=== PATIENT | male | born 1935 | race Two or more races ===

== ENCOUNTER 2017-10-28 19:42 | Inpatient (IN) | payer MEDICARE, MEDICAID ==
[~2017-10-28] VITALS: Ht 142.2 cm; Wt 60.8 kg
--- NOTE | 2017-10-28 20:09 | NUR ---
MEDICALLY CLEARED BY DR DENNEY. CALLED MUNIRA ALSTON FROM [employer]. ETA 1HR
[2017-10-28] MEDS ORDERED: ASPI-605 PO (22:10)
[2017-10-28] MEDS ORDERED: INSU100V7 SQ (22:10)
[2017-10-28] MEDS ORDERED: SITA50TA PO (22:10)
[2017-10-28] MEDS ORDERED: CLON0.1T PO (22:10)
[2017-10-28] MEDS ORDERED: TAMS0.4C34 PO (22:10)
[2017-10-28] MEDS ORDERED: AMLO5TAB2 PO (22:10)
[2017-10-28] MEDS ORDERED: PRAV10TA40 PO (22:10)
--- NOTE | 2017-10-28 22:17 | NUR ---
REPORT GIVEN TO NY VELAZQUEZ
--- NOTE | 2017-10-28 22:35 | NUR ---
Pt. admitted to [facility], under care of Dr. HUYNH Belongs List completed
[2017-10-28 22:40] VITALS: BP 159/57
[2017-10-28] MEDS ORDERED: MAG HYDROX/AL HYDROX/SIMETH 30 ML LIQUID UDC PO PRN (23:00)
[2017-10-28] MEDS ORDERED: MAGNESIUM HYDROXIDE 30 ML LIQUID UDC PO PRN (23:00)
[2017-10-28] MEDS ORDERED: LORAZEPAM 1 MG TABLET PO PRN (23:00)
[2017-10-28] MEDS ORDERED: TEMAZEPAM 7.5 MG CAPSULE PO PRN (23:00)
--- NOTE | 2017-10-28 23:30 | NUR ---
received to care, at 2234, on a 72 hour hold, for gravely disabled, from the emergency room, a transfer from [facility]. according to the chart, he has had recent fixed delusions of "bugs" all over his body, preventing him from sleeping, eating, or performing self care. upon arrival, he was pleasant, but anxious. interviewed via load out person. denies SI, or desire to harm self. agreed to contract for safety while in the hospital. pt was cooperative with admission questions, but unable to focus, due to being fixated on the bugs. he was given a snack and assisted to bed at 2300. as of 2330, he appears to be asleep. no distress noted. will continue to monitor closely.
--- NOTE | 2017-10-29 06:00 | NUR ---
slept 5.75 hours, total. assited with AM care, and shower. currently lying in bed. no distress noted.
[2017-10-29 07:30] VITALS: BP 137/52
[2017-10-29] MEDS ORDERED: DEXTROSE 50% 50 ML DISP.SYRIN IV PRN (11:30)
[2017-10-29] MEDS: BLOOD SUGAR DIAGNOSTIC 1 EACH STRIP VI SCH ×3 (11:52→21:47)
--- NOTE | 2017-10-29 12:56 | NUR ---
Gps/Computer Systems Consultant- Ambulates around with front wheel walker. Speaks Persian, making needs known. Redirectable , fed self after set up, denies discomfort, encouraged participation in his group therapy.
[2017-10-29 14:36] LABS: *BILIRUBIN,URIN NEGATIVE (NEGATIVE); *BLOOD, URINE 1+ (NEGATIVE); *COLOR,URINE YELLOW (YELLOW); *KETONES,URINE NEGATIVE (NEGATIVE); *PROTEIN,URINE 2+ (NEGATIVE); *UROBILINOGEN,URINE 0.2 E.U./dl (NORMAL); NITRITE, URINE NEGATIVE (NEGATIVE); PH,URINE 6.5 (5.0-8.0); UGLUCOSE NEGATIVE (NEGATIVE)
[2017-10-29 14:47] LABS: *CLARITY,URINE HAZY (CLEAR); LEUKOCYTE ESTERASE ,URINE 2+ (NEGATIVE)
[2017-10-29 14:48] LABS: SQUAMOUS EPITHELIAL CELL,UR FEW /HPF (NONE SEEN); WBC,URINE 80-100 /HPF (0-3)
[2017-10-29 15:40] VITALS: BP 141/57
[2017-10-29] MEDS: INSULIN REGULAR, HUMAN 300 UNIT/3 ML VIAL SQ PRN (16:52)
[2017-10-29] MEDS: SULFAMETH/TRIMETH 800/160 MG TABLET PO SCH ×2 (16:57→20:51)
[2017-10-29] MEDS: risperiDONE 0.5 MG TABLET PO SCH ×2 (18:45→20:51)
[2017-10-29 20:03] VITALS: BP 143/62
[2017-10-29] MEDS: ATORVASTATIN 10 MG TABLET PO SCH (20:50)
[2017-10-29] MEDS: TAMSULOSIN HCL 0.4 MG CAP.SR.24H PO SCH (20:51)
[2017-10-29] MEDS: CLONIDINE HCL 0.1 MG TABLET PO SCH (20:58)
--- NOTE | 2017-10-29 22:00 | NUR ---
received to care, sitting in his room, pleasant upon approach. compliant with medications, and staff direction. interviewed via director of retention. no delusional thoughts expressed. as of 2199, he appears to be asleep. no distress noted. will continue to monitor closely.
[2017-10-30] MEDS: BLOOD SUGAR DIAGNOSTIC 1 EACH STRIP VI SCH ×4 (06:14→21:16)
[2017-10-30 07:15] LABS: BASOPHILS # (AUTO) 0.1 K/uL (0.0-8.0); BASOPHILS % (AUTO) 1.2 % (0.0-2.0); EOSINOPHILS # (AUTO) 0.2 K/uL (0.0-0.7); HEMATOCRIT 30.8 % (36.7-47.1); HEMOGLOBIN 10.6 g/dL (12.5-16.3); LYMPHOCYTES # (AUTO) 1.1 K/uL (20.0-40.0); LYMPHOCYTES % (AUTO) 16.9 % (20.5-51.5); MEAN CORPUSCULAR HEMOGLOBIN 29.9 uug (23.8-33.4); MEAN CORPUSCULAR HGB CONC 34 g/dL (32.5-36.3); MEAN CORPUSCULAR VOLUME 87.1 fL (73.0-96.2); NEUTROPHILS # (AUTO) 4.1 K/uL (1.8-8.9); NEUTROPHILS % (AUTO) 63.9 % (38.5-71.5); PLATELET COUNT (AUTO) 227 K/uL (152-348); RED BLOOD CELL COUNT(AUTO) 3.53 MIL/uL (4.06-5.63); WHITE BLOOD COUNT (AUTO) 6.4 K/uL (3.6-10.2)
[2017-10-30 07:23] LABS: NEUTROPHILS % (MANUAL) 0 % (42-75)
[2017-10-30 07:37] LABS: ALANINE AMINOTRANSFERASE 72 U/L (16-63); ALKALINE PHOSPHATASE 392 U/L (50-136); ASPARTATE AMINOTRANSFERASE 52 U/L (15-37); BILIRUBIN,TOTAL 0.5 mg/dL (0.2-1.0); CARBON DIOXIDE 22 mmol/L (21-32); CHLORIDE 104 mmol/L (98-107); CREATININE 2.1 mg/dL (0.6-1.3); GLUCOSE 109 mg/dL (74-106); MAGNESIUM 1.8 mg/dL (1.8-2.4); POTASSIUM 4.5 mmol/L (3.5-5.1); TOTAL PROTEIN, SERUM 6.9 g/dL (6.4-8.2); UREA NITROGEN, BLOOD 47 mg/dL (7-18)
[2017-10-30 07:47] LABS: THYROID STIMULATING HORMONE 1.385 mIU/mL (0.358-3.740)
[2017-10-30 07:55] VITALS: BP 124/48
[2017-10-30] MEDS ORDERED: Medication Not On Formulary EA (Pravastatin Sodium 10 MG) PO SCH (09:00)
[2017-10-30] MEDS: risperiDONE 0.5 MG TABLET PO SCH ×2 (09:33→21:15)
[2017-10-30] MEDS: CLONIDINE HCL 0.1 MG TABLET PO SCH ×2 (09:34→21:15)
[2017-10-30] MEDS: AMLODIPINE 5 MG TABLET PO SCH (09:34)
[2017-10-30] MEDS: ASPIRIN EC 81 MG TABLET.DR PO SCH (09:36)
--- NOTE | 2017-10-30 11:22 | NUR ---
Initial DC Plan: Patient currently lives home alone [[id number] [facility] [place] [address]; [phone]]. He receives support from his caregiver Patricia [[phone]]. SW will follow up with MD and patient to discuss most appropriate discharge plans. SW will form a safe and proper discharge.
--- NOTE | 2017-10-30 11:29 | NUR ---
Firearms Reporting: RODRIGO submitted Mental Health Report to [facility] on 10/30.
[2017-10-30] MEDS: INSULIN REGULAR, HUMAN 300 UNIT/3 ML VIAL SQ PRN ×2 (12:57→21:17)
[2017-10-30] MEDS: ONDANSETRON ODT 4 MG TAB.RAPDIS SL PRN ×2 (15:43→22:14)
[2017-10-30 16:28] VITALS: BP 105/35
--- NOTE | 2017-10-30 16:56 | NUR ---
Blood sugar is 72.Pt remains awake,alert.Walker juice was given.No s/s of hyperglycemia/hypoglycemia.Will continue to monitor.
[2017-10-30 19:46] VITALS: BP 127/57
--- NOTE | 2017-10-30 20:30 | NUR ---
RECEIVED PATIENT IN HIS ROOM IN BED, HE WAS NOTED AWAKE A/O X 2, ABLE TO MAKE HIS NEEDS KNOWN AND ABLE TO WALK WITH THE AID OF A FWW. PATIENT REMAINS COMPLIANT WITH MEDICATION REGIMENT AT THIS TIME. HE WAS NOTED WITH DEPRESSED, MOOD, WITHDRAWN, BLUNTED AFFECT, POOR INSIGHT AND POOR JUDGMENT. CONTINUE WITH DELUSIONAL THOUGHTS; HE STATED, "I AM HERE IN THE HOSPITAL BECAUSE THERE ARE BUGS IN MY ROOM". PATIENT IS REDIRECTABLE AT THIS TIME. HE ALSO C/O NAUSEA WITHOUT EMESIS. MODESTA-MARKY COLA WAS GIVEN TO DRINK SLOWLY. SAFETY EMPHASIS, WILL CONTINUE TO MONITOR CLOSELY.
[2017-10-30] MEDS: SULFAMETH/TRIMETH 800/160 MG TABLET PO SCH (21:14)
[2017-10-30] MEDS: ATORVASTATIN 10 MG TABLET PO SCH (21:15)
[2017-10-30] MEDS: TAMSULOSIN HCL 0.4 MG CAP.SR.24H PO SCH (21:15)
[2017-10-30] MEDS: INSULIN GLARGINE,HUM 300 UNITS/3 ML CARTRIDGE SQ SCH (21:49)
--- NOTE | 2017-10-30 22:15 | NUR ---
ZOFRAN 4MG PO PRN WAS GIVEN FOR NAUSEA WITHOUT EMESIS. WILL CONTINUE TO MONITOR CLOSELY.
--- NOTE | 2017-10-30 23:20 | NUR ---
PATIENT STATED THAT HE IS "FEELING BETTER WITHOUT NAUSEA OR UPSET STOMACH". WILL CONTINUE TO MONITOR CLOSELY.
[2017-10-31 05:07] LABS: *BILIRUBIN,URIN NEGATIVE (NEGATIVE); *BLOOD, URINE Trace-intact (NEGATIVE); *COLOR,URINE LIGHT YELLOW (YELLOW); *KETONES,URINE NEGATIVE (NEGATIVE); *PROTEIN,URINE 1+ (NEGATIVE); *UROBILINOGEN,URINE 0.2 E.U./dl (NORMAL); LEUKOCYTE ESTERASE ,URINE 2+ (NEGATIVE); NITRITE, URINE NEGATIVE (NEGATIVE); UGLUCOSE NEGATIVE (NEGATIVE)
[2017-10-31 05:16] LABS: *CLARITY,URINE HAZY (CLEAR)
[2017-10-31 05:17] LABS: BACTERIA,URINE FEW /HPF (NONE SEEN); SQUAMOUS EPITHELIAL CELL,UR FEW /HPF (NONE SEEN); WBC,URINE 80-100 /HPF (0-3)
[2017-10-31 05:27] LABS: *CREATININE,URINE 52.9 mg/dL (30-125); *URINE TOTAL PROTEIN RANDOM 35.5 mg/dL (<150/24HR)
[2017-10-31 05:39] LABS: YEAST,URINE FEW /HPF (NONE SEEN)
[2017-10-31] MEDS: BLOOD SUGAR DIAGNOSTIC 1 EACH STRIP VI SCH ×4 (06:44→21:01)
[2017-10-31 07:08] LABS: BASOPHILS # (AUTO) 0.1 K/uL (0.0-8.0); BASOPHILS % (AUTO) 1.4 % (0.0-2.0); EOSINOPHILS # (AUTO) 0.2 K/uL (0.0-0.7); EOSINOPHILS % (AUTO) 2.9 % (0.0-7.0); HEMATOCRIT 31.5 % (36.7-47.1); HEMOGLOBIN 10.8 g/dL (12.5-16.3); LYMPHOCYTES # (AUTO) 0.9 K/uL (20.0-40.0); LYMPHOCYTES % (AUTO) 16.9 % (20.5-51.5); MEAN CORPUSCULAR HEMOGLOBIN 30.2 uug (23.8-33.4); MEAN CORPUSCULAR HGB CONC 34 g/dL (32.5-36.3); MEAN CORPUSCULAR VOLUME 88.1 fL (73.0-96.2); MONOCYTES # (AUTO) 0.7 K/uL (2.0-10.0); MONOCYTES % (AUTO) 12.9 % (0.0-11.0); NEUTROPHILS # (AUTO) 3.7 K/uL (1.8-8.9); NEUTROPHILS % (AUTO) 65.9 % (38.5-71.5); PLATELET COUNT (AUTO) 239 K/uL (152-348); RED BLOOD CELL COUNT(AUTO) 3.58 MIL/uL (4.06-5.63); WHITE BLOOD COUNT (AUTO) 5.6 K/uL (3.6-10.2)
[2017-10-31 07:30] VITALS: BP 120/76
[2017-10-31 07:45] LABS: ALANINE AMINOTRANSFERASE 64 U/L (16-63); ALKALINE PHOSPHATASE 351 U/L (50-136); ASPARTATE AMINOTRANSFERASE 31 U/L (15-37); BILIRUBIN,TOTAL 0.5 mg/dL (0.2-1.0); CARBON DIOXIDE 20 mmol/L (21-32); CHLORIDE 104 mmol/L (98-107); CREATINE KINASE, TOTAL 52 U/L (39-308); CREATININE 2.5 mg/dL (0.6-1.3); GLUCOSE 125 mg/dL (74-106); MAGNESIUM 2.1 mg/dL (1.8-2.4); PHOSPHOROUS 4.7 mg/dL (2.5-4.9); POTASSIUM 4.5 mmol/L (3.5-5.1); TOTAL PROTEIN, SERUM 7.1 g/dL (6.4-8.2); UREA NITROGEN, BLOOD 46 mg/dL (7-18)
[2017-10-31] MEDS: CLONIDINE HCL 0.1 MG TABLET PO SCH ×2 (08:36→20:55)
[2017-10-31] MEDS: ASPIRIN EC 81 MG TABLET.DR PO SCH (08:36)
[2017-10-31] MEDS: SULFAMETH/TRIMETH 800/160 MG TABLET PO SCH (08:36)
[2017-10-31] MEDS: risperiDONE 0.5 MG TABLET PO SCH ×2 (08:36→20:56)
[2017-10-31] MEDS: AMLODIPINE 5 MG TABLET PO SCH (08:37)
[2017-10-31 08:40] LABS: HEPATITIS A AB, IgM Negative (Negative); HEPATITIS B SURFACE AG Negative (Negative)
[2017-10-31] MEDS: ONDANSETRON ODT 4 MG TAB.RAPDIS SL PRN ×3 (08:40→20:54)
--- NOTE | 2017-10-31 08:50 | NUR ---
Gps/Progress Man- Patient still complaining of nausea, no vomiting noted , zofran 4 mg odt 1 tab. given, hesitancy in taking his routine am. meds. r/t his nausea, offered diet lemon soda , ate fairly well breakfast.
[2017-10-31] MEDS: INSULIN REGULAR, HUMAN 300 UNIT/3 ML VIAL SQ PRN ×2 (11:52→20:53)
[2017-10-31 15:11] VITALS: BP 107/52
[2017-10-31] MEDS: FLUCONAZOLE 100 MG TABLET PO SCH (15:54)
--- NOTE | 2017-10-31 19:48 | NUR ---
Received patient lying in bed. No s/s of distress noted. Denied any pain at this time. Encouraged to call for help whenever needed. Will continue to monitor.
[2017-10-31 19:59] VITALS: BP 118/51
[2017-10-31] MEDS: TAMSULOSIN HCL 0.4 MG CAP.SR.24H PO SCH (20:56)
[2017-10-31] MEDS: ATORVASTATIN 10 MG TABLET PO SCH (20:56)
[2017-10-31] MEDS: INSULIN GLARGINE,HUM 300 UNITS/3 ML CARTRIDGE SQ SCH (21:00)
--- NOTE | 2017-10-31 21:30 | NUR ---
Zofran administered per patient's request. Noted spitting saliva on basin provided. Humulin R per sliding scale refused. Snacks provided per request.
--- NOTE | 2017-10-31 23:34 | NUR ---
Episode of nausea appears to have been corrected. Patient asleep comfortably at this time. Will continue to monitor.
[2017-11-01] MEDS: BLOOD SUGAR DIAGNOSTIC 1 EACH STRIP VI SCH ×4 (06:35→20:05)
[2017-11-01 07:30] VITALS: BP 138/59
[2017-11-01] MEDS: ASPIRIN EC 81 MG TABLET.DR PO SCH (08:10)
[2017-11-01] MEDS: risperiDONE 0.5 MG TABLET PO SCH ×2 (08:10→20:01)
[2017-11-01] MEDS: FLUCONAZOLE 100 MG TABLET PO SCH (08:10)
[2017-11-01] MEDS: AMLODIPINE 5 MG TABLET PO SCH (08:11)
[2017-11-01] MEDS: CLONIDINE HCL 0.1 MG TABLET PO SCH ×2 (08:11→20:01)
[2017-11-01 09:11] LABS: CARBON DIOXIDE 21 mmol/L (21-32); CHLORIDE 102 mmol/L (98-107); CREATININE 2.4 mg/dL (0.6-1.3); GLUCOSE 202 mg/dL (74-106); MAGNESIUM 2.1 mg/dL (1.8-2.4); POTASSIUM 4.7 mmol/L (3.5-5.1); UREA NITROGEN, BLOOD 42 mg/dL (7-18)
[2017-11-01 09:19] LABS: BASOPHILS # (AUTO) 0.1 K/uL (0.0-8.0); BASOPHILS % (AUTO) 1.5 % (0.0-2.0); EOSINOPHILS # (AUTO) 0.1 K/uL (0.0-0.7); EOSINOPHILS % (AUTO) 2.2 % (0.0-7.0); HEMATOCRIT 32.6 % (36.7-47.1); HEMOGLOBIN 11.3 g/dL (12.5-16.3); LYMPHOCYTES # (AUTO) 0.8 K/uL (20.0-40.0); LYMPHOCYTES % (AUTO) 14.8 % (20.5-51.5); MEAN CORPUSCULAR HEMOGLOBIN 30.2 uug (23.8-33.4); MEAN CORPUSCULAR HGB CONC 35 g/dL (32.5-36.3); MEAN CORPUSCULAR VOLUME 87.5 fL (73.0-96.2); MONOCYTES # (AUTO) 0.6 K/uL (2.0-10.0); MONOCYTES % (AUTO) 10.8 % (0.0-11.0); NEUTROPHILS # (AUTO) 3.7 K/uL (1.8-8.9); NEUTROPHILS % (AUTO) 70.7 % (38.5-71.5); PLATELET COUNT (AUTO) 270 K/uL (152-348); RED BLOOD CELL COUNT(AUTO) 3.73 MIL/uL (4.06-5.63); WHITE BLOOD COUNT (AUTO) 5.2 K/uL (3.6-10.2)
[2017-11-01] MEDS: INSULIN REGULAR, HUMAN 300 UNIT/3 ML VIAL SQ PRN ×2 (12:22→20:14)
--- NOTE | 2017-11-01 12:38 | NUR ---
Gps/Housing Inspector- Patient verbalized there are "animales" crawling around, side railes and on his head and arm, had been compliant with routine meds. w/ min . prompting and encouragement. Dr Antonio in to see patient ,aware of todays labs.
[2017-11-01 15:31] VITALS: BP 129/51
[2017-11-01] MEDS: ONDANSETRON ODT 4 MG TAB.RAPDIS SL PRN (16:10)
[2017-11-01] MEDS: ACETAMINOPHEN 325 MG TABLET PO PRN (16:11)
--- NOTE | 2017-11-01 17:30 | NUR ---
Gps/Heating Engineer- Ambulates around with FWW, able to verbalized needs in simple Palauan, and Japanese, he thinks small animals crawling in his bed, requesting medicine he needs to take to have bugs disappear . Noted bread crumbs on his bed, informed patient .
[2017-11-01 20:00] VITALS: BP 131/62
[2017-11-01] MEDS: ATORVASTATIN 10 MG TABLET PO SCH (20:00)
[2017-11-01] MEDS: TAMSULOSIN HCL 0.4 MG CAP.SR.24H PO SCH (20:01)
[2017-11-01] MEDS: INSULIN GLARGINE,HUM 300 UNITS/3 ML CARTRIDGE SQ SCH (20:10)
[2017-11-02] MEDS: BLOOD SUGAR DIAGNOSTIC 1 EACH STRIP VI SCH ×4 (06:28→21:02)
--- NOTE | 2017-11-02 06:42 | NUR ---
GPS: REMAIN CALM AND COOPERATIVE WITH MEDICATIONS AND CARE. SHOWERED THIS MORNING. BLOOD SUGAR 98MG/DL THIS MORNING. SLEPT 7 HRS THROUGH THE NIGHT. CONTINUE PLAN OF CARE.
[2017-11-02 07:30] VITALS: BP 118/40
[2017-11-02] MEDS: CLONIDINE HCL 0.1 MG TABLET PO SCH ×2 (09:00→21:04)
[2017-11-02] MEDS: AMLODIPINE 5 MG TABLET PO SCH (09:00)
[2017-11-02] MEDS: risperiDONE 0.5 MG TABLET PO SCH (09:06)
[2017-11-02] MEDS: ASPIRIN EC 81 MG TABLET.DR PO SCH (09:06)
[2017-11-02] MEDS: FLUCONAZOLE 100 MG TABLET PO SCH (09:06)
[2017-11-02] MEDS: INSULIN REGULAR, HUMAN 300 UNIT/3 ML VIAL SQ PRN ×3 (12:34→20:43)
[2017-11-02] MEDS: ACETAMINOPHEN 325 MG TABLET PO PRN (14:43)
[2017-11-02 15:07] VITALS: BP 137/53
[2017-11-02 16:07] LABS: A/G RATIO 1.1 (0.7-1.7); ALBUMIN 3.3 g/dL (2.9-4.4); ALPHA-1-GLOBULIN 0.3 g/dL (0.0-0.4); ALPHA-2-GLOBULIN 0.8 g/dL (0.4-1.0); GAMMA GLOBULIN 0.9 g/dL (0.4-1.8); M-SPIKE Not Observed g/dL (Not Observed)
[2017-11-02 19:58] VITALS: BP 128/50
[2017-11-02] MEDS: ATORVASTATIN 10 MG TABLET PO SCH (20:39)
[2017-11-02] MEDS: risperiDONE 1 MG TABLET PO SCH (20:39)
[2017-11-02] MEDS: TAMSULOSIN HCL 0.4 MG CAP.SR.24H PO SCH (20:39)
[2017-11-02] MEDS: INSULIN GLARGINE,HUM 300 UNITS/3 ML CARTRIDGE SQ SCH (20:44)
[2017-11-02 21:03] VITALS: BP 145/68
--- NOTE | 2017-11-02 21:31 | NUR ---
PATIENT RECEIVED IN BED AWAKE. ISOLATIVE/WITHDRAWN. NO AGGRESSIVE OR COMBATIVE BEHAVIOR NOTED, WILL CONTINUE TO MONITOR AND REDIRECT NEEDED. PATIENT COMPLAINT WITH MEDICATION, ACCUCHECK 145 MG/DL SLIDING SCALE GIVEN ORDERED, LANTUS 5 UNITS GIVEN ORDERED. PATIENT IN NO APPARENT DISTRESS WILL CONTINUE TO MONITOR, PATIENT DENIES PAIN AT THIS TIME, WILL CONTINUE TO MONITOR. BED IN LOWEST POSITION, BED LOCKED, AND BED ALARM ON WHILE IN BED.
[2017-11-03 07:30] VITALS: BP 133/54
[2017-11-03 07:32] LABS: ALANINE AMINOTRANSFERASE 52 U/L (16-63); ALKALINE PHOSPHATASE 338 U/L (50-136); ASPARTATE AMINOTRANSFERASE 34 U/L (15-37); BILIRUBIN,TOTAL 0.5 mg/dL (0.2-1.0); CARBON DIOXIDE 22 mmol/L (21-32); CHLORIDE 103 mmol/L (98-107); CREATININE 2.2 mg/dL (0.6-1.3); GLUCOSE 102 mg/dL (74-106); MAGNESIUM 2.1 mg/dL (1.8-2.4); PHOSPHOROUS 4.1 mg/dL (2.5-4.9); POTASSIUM 5.2 mmol/L (3.5-5.1); UREA NITROGEN, BLOOD 45 mg/dL (7-18)
[2017-11-03 07:42] LABS: BASOPHILS # (AUTO) 0.1 K/uL (0.0-8.0); BASOPHILS % (AUTO) 2.4 % (0.0-2.0); EOSINOPHILS # (AUTO) 0.2 K/uL (0.0-0.7); EOSINOPHILS % (AUTO) 3.8 % (0.0-7.0); HEMATOCRIT 33.2 % (36.7-47.1); HEMOGLOBIN 11.3 g/dL (12.5-16.3); LYMPHOCYTES # (AUTO) 1.4 K/uL (20.0-40.0); LYMPHOCYTES % (AUTO) 22.3 % (20.5-51.5); MEAN CORPUSCULAR HEMOGLOBIN 29.6 uug (23.8-33.4); MEAN CORPUSCULAR HGB CONC 34 g/dL (32.5-36.3); MEAN CORPUSCULAR VOLUME 87.2 fL (73.0-96.2); MONOCYTES # (AUTO) 0.7 K/uL (2.0-10.0); NEUTROPHILS # (AUTO) 3.6 K/uL (1.8-8.9); NEUTROPHILS % (AUTO) 59.5 % (38.5-71.5); PLATELET COUNT (AUTO) 284 K/uL (152-348); RED BLOOD CELL COUNT(AUTO) 3.81 MIL/uL (4.06-5.63); WHITE BLOOD COUNT (AUTO) 6.1 K/uL (3.6-10.2)
[2017-11-03] MEDS: ASPIRIN EC 81 MG TABLET.DR PO SCH (08:01)
[2017-11-03] MEDS: CLONIDINE HCL 0.1 MG TABLET PO SCH ×2 (08:01→20:25)
[2017-11-03] MEDS: risperiDONE 1 MG TABLET PO SCH ×2 (08:01→20:24)
[2017-11-03] MEDS: AMLODIPINE 5 MG TABLET PO SCH (08:01)
[2017-11-03 08:07] LABS: VIT D, 25-HYDROXY 38.7 ng/mL (30.0-100.0)
[2017-11-03] MEDS: FLUCONAZOLE 100 MG TABLET PO SCH (08:14)
[2017-11-03 15:04] VITALS: BP 129/57
[2017-11-03 20:00] VITALS: BP 135/46
[2017-11-03] MEDS: ATORVASTATIN 10 MG TABLET PO SCH (20:24)
[2017-11-03] MEDS: TAMSULOSIN HCL 0.4 MG CAP.SR.24H PO SCH (20:24)
[2017-11-03] MEDS: INSULIN GLARGINE,HUM 300 UNITS/3 ML CARTRIDGE SQ SCH (20:50)
--- NOTE | 2017-11-03 21:45 | NUR ---
HS CLONIDINE HELD D/T LOW DBP. Pt's LEGS ELEVATED WHILE IN BED, Pt ASYMPTOMATIC FOR S/S OF HYPOTENSION.
[2017-11-04] MEDS ORDERED: BLOOD SUGAR DIAGNOSTIC 1 EACH STRIP VI SCH (06:00)
--- NOTE | 2017-11-04 07:02 | NUR ---
RECEIVED Pt IN BED SLEEPING, AROUSES EASILY. A+Ox2 TO SELF AND PLACE. HS BG 221, NO SLIDING SCALE. LANTUS 5 UNITS ADMINISTERED ORDERED. HS CLONIDINE 0.1mg HELD D/T LOW DBP, Pt ASYMPTOMATIC. DENIED PAIN. AM BG 118. Pt PASSIVE AND GUARDED, EXHIBITS CONSTRICTED AFFECT. DR PRICE AWARE OF ELEVATED K+, Pt ASYMPTOMATIC FOR HYPERKALEMIA. NO AGGRESSIVE OR COMBATIVE BEHAVIORS. SLEPT
[2017-11-04 07:30] VITALS: BP 108/60
[2017-11-04] MEDS: SERTRALINE HCL 50 MG TABLET PO SCH (09:09)
[2017-11-04] MEDS: ASPIRIN EC 81 MG TABLET.DR PO SCH (09:09)
[2017-11-04] MEDS: risperiDONE 1 MG TABLET PO SCH ×2 (09:09→20:34)
[2017-11-04] MEDS: AMLODIPINE 5 MG TABLET PO SCH (09:15)
[2017-11-04 10:11] LABS: CALCITRIOL VIT D,1,25 DIHYDROX 36.5 pg/mL (19.9-79.3)
[2017-11-04 10:11] LABS: CALCITRIOL VIT D,1,25 DIHYDROX 40.9 pg/mL (19.9-79.3)
[2017-11-04] MEDS: CLONIDINE HCL 0.1 MG TABLET PO SCH ×2 (10:48→20:45)
[2017-11-04 15:07] VITALS: BP 115/45
[2017-11-04 18:47] LABS: CARBON DIOXIDE 23 mmol/L (21-32); CHLORIDE 99 mmol/L (98-107); CREATININE 2.1 mg/dL (0.6-1.3); GLUCOSE 169 mg/dL (74-106); POTASSIUM 5.5 mmol/L (3.5-5.1); UREA NITROGEN, BLOOD 45 mg/dL (7-18)
[2017-11-04 20:00] VITALS: BP 138/52
[2017-11-04] MEDS: ATORVASTATIN 10 MG TABLET PO SCH (20:33)
[2017-11-04] MEDS: TAMSULOSIN HCL 0.4 MG CAP.SR.24H PO SCH (20:34)
[2017-11-04] MEDS: INSULIN GLARGINE,HUM 300 UNITS/3 ML CARTRIDGE SQ SCH (20:45)
--- NOTE | 2017-11-05 01:10 | NUR ---
HS CLONIDINE HELD D/T LOW DBP. Pt ASYMPTOMATIC FOR S/S OF HYPOTENSION. LEGS ELEVATED WHILE IN BED.
[2017-11-05] MEDS: BLOOD SUGAR DIAGNOSTIC 1 EACH STRIP VI SCH (06:39)
--- NOTE | 2017-11-05 06:51 | NUR ---
Pt REMAINS WITHDRAWN, ISOLATIVE, AND RECLUSIVE. STAYED IN HIS ROOM THE ENTIRE SHIFT. AM BG 99, SLEPT 8.30 HOURS.
[2017-11-05 07:30] VITALS: BP 126/60
[2017-11-05] MEDS: SERTRALINE HCL 50 MG TABLET PO SCH (09:00)
[2017-11-05] MEDS: CLONIDINE HCL 0.1 MG TABLET PO SCH ×2 (09:00→20:20)
[2017-11-05] MEDS: risperiDONE 1 MG TABLET PO SCH ×2 (09:00→20:19)
[2017-11-05] MEDS: ASPIRIN EC 81 MG TABLET.DR PO SCH (09:01)
[2017-11-05] MEDS: AMLODIPINE 5 MG TABLET PO SCH (09:01)
[2017-11-05] MEDS ORDERED: SODIUM POLYSTYRENE SULFONATE 15 G/60 ML LIQUID UDC PO ONE (13:00)
[2017-11-05] MEDS: FUROSEMIDE 20 MG TABLET PO SCH (13:49)
[2017-11-05 15:04] LABS: *CHLORIDE RNDM,URINE 44 mmol/L (100-250); *POTASSIUM RNDM,URINE 31 mmol/L (25-125)
[2017-11-05 16:17] VITALS: BP 128/58
--- NOTE | 2017-11-05 17:30 | NUR ---
Gps/Meat Selector- Ambulates around with front wheel walker, denies any hallucinations , denies seeing bugs.caregiver came in to see patient, paper for temporary DPOA , brought by caregiver, put in his chart
[2017-11-05 19:46] VITALS: BP 141/53
[2017-11-05] MEDS: TAMSULOSIN HCL 0.4 MG CAP.SR.24H PO SCH (20:20)
[2017-11-05] MEDS: ATORVASTATIN 10 MG TABLET PO SCH (20:20)
[2017-11-05] MEDS: INSULIN GLARGINE,HUM 300 UNITS/3 ML CARTRIDGE SQ SCH (20:30)
--- NOTE | 2017-11-05 20:40 | NUR ---
nsg: acu ck is 193mg/dL, lantus 5 units given. no reg insulin ss coverage or ordered.
[2017-11-06] MEDS: BLOOD SUGAR DIAGNOSTIC 1 EACH STRIP VI SCH (06:32)
[2017-11-06 07:30] VITALS: BP 136/55
[2017-11-06 07:38] LABS: CARBON DIOXIDE 24 mmol/L (21-32); CHLORIDE 101 mmol/L (98-107); CREATININE 2.1 mg/dL (0.6-1.3); GLUCOSE 103 mg/dL (74-106); MAGNESIUM 1.9 mg/dL (1.8-2.4); PHOSPHOROUS 4.6 mg/dL (2.5-4.9); UREA NITROGEN, BLOOD 47 mg/dL (7-18); URIC ACID 9.4 mg/dL (3.5-7.2)
[2017-11-06 09:05] VITALS: BP 136/55
[2017-11-06] MEDS: AMLODIPINE 5 MG TABLET PO SCH (09:05)
[2017-11-06] MEDS: FUROSEMIDE 20 MG TABLET PO SCH (09:05)
[2017-11-06] MEDS: ASPIRIN EC 81 MG TABLET.DR PO SCH (09:05)
[2017-11-06] MEDS: risperiDONE 1 MG TABLET PO SCH (09:05)
[2017-11-06] MEDS: SERTRALINE HCL 50 MG TABLET PO SCH (09:05)
[2017-11-06] MEDS: CLONIDINE HCL 0.1 MG TABLET PO SCH (09:05)
[2017-11-06 11:02] LABS: BASOPHILS # (AUTO) 0.1 K/uL (0.0-8.0); BASOPHILS % (AUTO) 1.2 % (0.0-2.0); EOSINOPHILS # (AUTO) 0.2 K/uL (0.0-0.7); EOSINOPHILS % (AUTO) 2.4 % (0.0-7.0); HEMATOCRIT 32.7 % (36.7-47.1); HEMOGLOBIN 11.4 g/dL (12.5-16.3); LYMPHOCYTES # (AUTO) 1.1 K/uL (20.0-40.0); LYMPHOCYTES % (AUTO) 15.6 % (20.5-51.5); MEAN CORPUSCULAR HEMOGLOBIN 30.6 uug (23.8-33.4); MEAN CORPUSCULAR HGB CONC 35 g/dL (32.5-36.3); MEAN CORPUSCULAR VOLUME 87.5 fL (73.0-96.2); MONOCYTES # (AUTO) 0.8 K/uL (2.0-10.0); MONOCYTES % (AUTO) 11.4 % (0.0-11.0); NEUTROPHILS # (AUTO) 4.8 K/uL (1.8-8.9); NEUTROPHILS % (AUTO) 69.4 % (38.5-71.5); PLATELET COUNT (AUTO) 314 K/uL (152-348); RED BLOOD CELL COUNT(AUTO) 3.74 MIL/uL (4.06-5.63)
--- NOTE | 2017-11-06 13:03 | NUR ---
DC Note: Patient will be discharged home [[address] [facility] [place] [address]; [phone]] via private transportation. RODRIGO spoke with patient's caregiver Patricia [[phone]] who stated she will picket labor union patient around 3pm. Patient is alert and oriented x4 and denies SI and HI. Patient is aware and agreeable to discharge plans. Patient will follow up with his artificial insemination technician Dr. Christopher Garza [[id number], [place] [address]; ]. Patient's caregiver Patricia stated that patient does not currently have a psychiatrist. RODRIGO provided referrals for outpatient psychiatrists including: Dr. Beckwith [ ], Dr. Ospina [ ], and Dr. Gold [ ]. Patient was provided with additional outpatient mental health resources to [facility] , [facility] , and the National Suicide Prevention Lifeline . Addendum: 11/06/17 at 1330 by TAD WALLACE RODRIGO arranged Home Health for patient with [facility] [ ]. A home health nurse will come to patient's home on ThursdayNovember 08 to assess patient.
== END 2017-11-06 15:15 | disposition home health service (06) | DRG 885 ==
LOC: ER 19:46 → GPS 22:21
PROVIDERS: ADMIT Psychiatry & Neurology Psychiatry; ATTEND Internal Medicine
DX: F23 Brief psychotic disorder (principal); F05 Delirium due to known physiological condition; N17.9 Acute kidney failure, unspecified; N18.9 Chronic kidney disease, unspecified; E11.65 Type 2 diabetes mellitus with hyperglycemia; D59.1 Other autoimmune hemolytic anemias; E11.22 Type 2 diabetes mellitus with diabetic chronic kidney disease; E87.1 Hypo-osmolality and hyponatremia; E87.5 Hyperkalemia; F03.91 Unspecified dementia, unspecified severity, with behavioral disturbance; N39.0 Urinary tract infection, site not specified; E78.5 Hyperlipidemia, unspecified; Z79.4 Long term (current) use of insulin; Z88.0 Allergy status to penicillin; N40.0 Benign prostatic hyperplasia without lower urinary tract symptoms; N13.5 Crossing vessel and stricture of ureter without hydronephrosis; J44.9 Chronic obstructive pulmonary disease, unspecified; E66.9 Obesity, unspecified; Z68.30 Body mass index [BMI] 30.0-30.9, adult; Z71.3 Dietary counseling and surveillance; I12.9 Hypertensive chronic kidney disease with stage 1 through stage 4 chronic kidney disease, or unspecified chronic kidney disease; Z87.440 Personal history of urinary (tract) infections; Z87.891 Personal history of nicotine dependence; F32.9 Major depressive disorder, single episode, unspecified
CPT/HCPCS: 36415; 76770; 82306; 82533; 82652; 83735; 83970; 84100; 84133; 84155; 84156; 84165; 84300; 84443; 84550; 85025; 86705; 86709; 86803; 87086; 87340; A4663; J1815; Q0162